=== PATIENT | female | born 1985 | race Caucasian/White ===

== ENCOUNTER 2017-10-08 22:28 | Inpatient (IN) | payer OTHER ==
[~2017-10-08] VITALS: Ht 172.7 cm; Wt 90.7 kg
[2017-10-08] MEDS ORDERED: TERBUTALINE SULFATE 1 MG/ML VIAL SUBCUT ONE (22:45)
[2017-10-08] MEDS ORDERED: LR 500 ML IV ONE (22:45)
[2017-10-08] MEDS ORDERED: NALBUPHINE HCL 10 MG/ML AMP IVP PRN (22:45)
[2017-10-08] MEDS ORDERED: OXYTOCIN/NORMAL SALINE 1,000 ML IV SCH (22:45)
[2017-10-08] MEDS ORDERED: AMPICILLIN SODIUM 2 GM in NS 100 ML IV ONE (22:45)
[2017-10-08] MEDS ORDERED: LR 1,000 ML IV ONE (22:45)
[2017-10-08 23:24] LABS: BASOPHILS % (AUTO) 0.3 % (0.0-2.0); EOSINOPHILS # (AUTO) 0.3 K/uL (0.0-0.4); EOSINOPHILS % (AUTO) 2.9 % (0.0-4.0); HEMATOCRIT 33.3 % (36-48); LYMPHOCYTES % (AUTO) 20.4 % (20.5-51.5); MEAN CORPUSCULAR HEMOGLOBIN 27 pg (27-31); MEAN CORPUSCULAR HGB CONC 33 % (32-36); MEAN CORPUSCULAR VOLUME 82 fL (79.0-98.0); MONOCYTES # (AUTO) 0.7 K/uL (0.0-1.0); MONOCYTES % (AUTO) 6.7 % (1.7-9.3); NEUTROPHILS # (AUTO) 6.7 K/uL (1.8-7.7); NEUTROPHILS % (AUTO) 69.7 % (40.0-70.0); PLATELET COUNT (AUTO) 391 K/uL (130-430); RED BLOOD CELL COUNT(AUTO) 4.07 MIL/uL (4.2-6.2); RED CELL DISTRIBUTION WIDTH 13.6 % (9.0-15.0); WHITE BLOOD COUNT (AUTO) 9.7 K/uL (4.8-10.8)
[2017-10-08] MEDS: LR 1,000 ML IV SCH (23:54)
[2017-10-09] MEDS ORDERED: fentaNYL CITRATE/PF 100 MCG/2 ML AMP ONE (00:37)
[2017-10-09] MEDS: LR 1,000 ML IV SCH (01:04)
[2017-10-09 01:45] VITALS: BP_SYST 117
[2017-10-09] MEDS ORDERED: LR 500 ML IV ONE (02:18)
[2017-10-09] MEDS ORDERED: FENT2mCg/mL-ROPIVA0.2%/NS EPID 150 ML EP SCH (02:30)
[2017-10-09] MEDS ORDERED: fentaNYL CITRATE/PF 100 MCG/2 ML AMP IVP ONE ×2 (02:30)
[2017-10-09] MEDS ORDERED: ePHEDrine sulfate 50 MG/ML VIAL IVP PRN (02:30)
[2017-10-09] MEDS ORDERED: SENNOSIDES/DOCUSATE SODIUM 1 TAB TABLET(SENOKOT-S) PO PRN (07:00)
[2017-10-09] MEDS ORDERED: GLYCERIN/WITCH HAZEL (TUCKS PADS) TP PRN (07:00)
[2017-10-09] MEDS ORDERED: DOCUSATE SODIUM 100 MG CAPSULE PO PRN (07:00)
[2017-10-09] MEDS ORDERED: LANOLIN 7 GM OINT. TP PRN (07:00)
[2017-10-09] MEDS ORDERED: ACETAMINOPHEN 325 MG TABLET PO PRN (07:00)
[2017-10-09] MEDS ORDERED: OXYTOCIN/NORMAL SALINE 1,000 ML IV SCH (07:00)
[2017-10-09] MEDS ORDERED: OXYCODONE/ACETAMINOPHEN 5-325 TABLET PO PRN ×2 (07:00)
[2017-10-09] MEDS ORDERED: METHYLERGONOVINE MALEATE 0.2 MG TABLET PO PRN (07:00)
[2017-10-09] MEDS ORDERED: DERMOPLAST SPRAY TP PRN (07:00)
[2017-10-09] MEDS ORDERED: OXYTOCIN/NORMAL SALINE 1,000 ML IV ONE (07:00)
[2017-10-09] MEDS ORDERED: DIPH-TET-PERTUS Vaccine 0.5 ML VIAL (ADACEL) I.M. PRN (07:00)
[2017-10-09] MEDS ORDERED: RHO(D) IMMUNE GLOBULIN/MALTOSE 1500 UNITS/1.3 ML (WINHRO) IM PRN (07:00)
[2017-10-09] MEDS ORDERED: HYDROCORTISONE 0.5%, 28.35 GM TOPICAL CREAM TP PRN (07:00)
[2017-10-09] MEDS ORDERED: ANUSOL 1 EA SUPP.RECT (PREPARATION H) RC PRN (07:00)
[2017-10-09] MEDS ORDERED: MEASLES,MUMPS&RUBELLA VACC/PF 12500 UNIT/0.5 ML VIAL SUBQ PRN (07:00)
[2017-10-09] MEDS ORDERED: DIPHENHYDRAMINE HCL 50 MG CAPSULE PO PRN (08:45)
[2017-10-09] MEDS: IBUPROFEN 600 MG TABLET PO SCH ×2 (12:04→17:37)
[2017-10-09] MEDS ORDERED: TEMAZEPAM 15 MG CAPSULE PO PRN (21:00)
[2017-10-10] MEDS: IBUPROFEN 600 MG TABLET PO SCH ×3 (00:12→11:51)
[2017-10-10 07:35] LABS: HEMATOCRIT 32.1 % (36-48); HEMOGLOBIN 10.3 g/dL (12.0-16.0)
[2017-10-10] MEDS ORDERED: MINERAL OIL 30 ML UDC PO ONE (13:04)
== END 2017-10-10 13:05 | disposition home or self-care (01) | DRG 775 ==
LOC: SPU 22:28
PROVIDERS: ADMIT Obstetrics & Gynecology; ATTEND Obstetrics & Gynecology
PROC: 10E0XZZ Delivery of Products of Conception, External Approach (ICD-10-PCS; principal; 2017-10-09)
PROC: 0KQM0ZZ Repair Perineum Muscle, Open Approach (ICD-10-PCS; 2017-10-09)
PROC: 00HU33Z Insertion of Infusion Device into Spinal Canal, Percutaneous Approach (ICD-10-PCS; 2017-10-09)
PROC: 3E0R3BZ Introduction of Anesthetic Agent into Spinal Canal, Percutaneous Approach (ICD-10-PCS; 2017-10-09)
DX: O70.1 Second degree perineal laceration during delivery (principal); Z37.0 Single live birth; Z3A.38 38 weeks gestation of pregnancy
CPT/HCPCS: 36415; 85018-TC; 85025; 86592; 86886; 86900; 86901; J0290; J2300; J2590; J3010; J7120; Q0163

== ENCOUNTER 2022-09-26 18:55 | Inpatient (IN) | payer BC, OTHER ==
[~2022-09-26] VITALS: Ht 170.2 cm; Wt 99.8 kg
[~2022-09-26 18:55] MED LIST: LR 1,000 ML IV.SOLN IV ONE; MIDAZOLAM HCL 50 mg/10 mL INJ. VIAL ONE; NS IRRIG SOLN 1000 ML IR ONE; ceFAZolin SODIUM 1 GM VIAL ONE; fentaNYL CITRATE 250 MCG/5 ML AMP ONE
[2022-09-26] MEDS ORDERED: OXYTOCIN/0.9 % SODIUM CHLORIDE 1,000 ML IV SCH (20:15)
[2022-09-26] MEDS ORDERED: LR 1,000 ML IV ONE (20:15)
[2022-09-26] MEDS ORDERED: NALBUPHINE HCL 10 MG/ML AMP IM PRN (20:15)
[2022-09-26] MEDS ORDERED: TERBUTALINE SULFATE 1 MG/ML VIAL SUBCUT ONE (20:15)
[2022-09-26] MEDS ORDERED: LR 1,000 ML IV SCH (20:15)
[2022-09-26] MEDS ORDERED: LR 500 ML IV ONE ×2 (20:15→20:30)
[2022-09-26] MEDS ORDERED: ROPIVACAINE HCL/PF 0.2% 200 ML ONE (20:19)
[2022-09-26] MEDS ORDERED: fentaNYL CITRATE/PF 100 MCG/2 ML AMP ONE (20:19)
[2022-09-26] MEDS ORDERED: FENT2mCg/mL-ROPIVA0.2%/NS EPID 200 ML EP SCH (20:30)
[2022-09-26] MEDS ORDERED: AMPICILLIN SODIUM 2 GM in NS 100 ML IV ONE (20:45)
[2022-09-26 20:46] LABS: BASOPHILS % (AUTO) 0.3 % (0.0-2.0); EOSINOPHILS # (AUTO) 0.2 K/uL (0.0-0.4); EOSINOPHILS % (AUTO) 2.1 % (0.0-4.0); HEMATOCRIT 33.9 % (36-48); HEMOGLOBIN 11.1 g/dL (12.0-16.0); LYMPHOCYTES # (AUTO) 1.9 K/uL (1.0-5.5); LYMPHOCYTES % (AUTO) 24.2 % (20.5-51.5); MEAN CORPUSCULAR HEMOGLOBIN 26 pg (27-31); MEAN CORPUSCULAR HGB CONC 33 % (32-36); MEAN CORPUSCULAR VOLUME 80 fL (79.0-98.0); MONOCYTES # (AUTO) 0.6 K/uL (0.0-1.0); MONOCYTES % (AUTO) 7.9 % (1.7-9.3); NEUTROPHILS # (AUTO) 5.3 K/uL (1.8-7.7); NEUTROPHILS % (AUTO) 65.5 % (40.0-70.0); PLATELET COUNT (AUTO) 366 K/uL (130-430); RED BLOOD CELL COUNT(AUTO) 4.23 MIL/uL (4.2-6.2); RED CELL DISTRIBUTION WIDTH 15.7 % (9.0-15.0)
[2022-09-26 23:31] VITALS: BP_SYST 125
[2022-09-27] MEDS ORDERED: AMPICILLIN SODIUM 2 GM VIAL ONE ×2 (00:10)
[2022-09-27] MEDS ORDERED: AMPICILLIN SODIUM 1 GM in NS 50 ML IV SCH (02:00)
[2022-09-27] MEDS ORDERED: AMPICILLIN SODIUM 1 GM VIAL ONE ×2 (04:02)
[2022-09-27] MEDS ORDERED: fentaNYL CITRATE/PF 100 MCG/2 ML AMP ONE (11:57)
[2022-09-27] MEDS ORDERED: ROPIVACAINE HCL/PF 0.2% 200 ML ONE (11:58)
[2022-09-27] MEDS ORDERED: DIPHENHYDRAMINE INJ 50 MG/ML VIAL IVP PRN (17:15)
[2022-09-27] MEDS ORDERED: METOCLOPRAMIDE HCL 10 MG/2 ML VIAL IVP PRN (17:15)
[2022-09-27] MEDS ORDERED: ONDANSETRON HCL 4 MG/2 ML VIAL IVP PRN ×2 (17:15)
[2022-09-27] MEDS ORDERED: MORPHINE SULFATE 10MG/10ML PF AMP EP SCH (17:15)
[2022-09-27] MEDS ORDERED: NALOXONE HCL 0.4 MG/ML AMP (NARCAN) IVP PRN ×3 (17:15→18:00)
[2022-09-27] MEDS ORDERED: fentaNYL CITRATE/PF 100 MCG/2 ML AMP IVP PRN ×2 (17:15)
[2022-09-27] MEDS ORDERED: KETOROLAC TROMETHAMINE 60 MG/2 ML VIAL IM PRN (17:15)
[2022-09-27] MEDS ORDERED: NALBUPHINE HCL 10 MG/ML AMP IVP PRN (17:15)
[2022-09-27] MEDS ORDERED: HYDROcodone/ACETAMIN 5-325 MG TAB (NORCO/ VICODIN) PO PRN (18:00)
[2022-09-27] MEDS ORDERED: LANOLIN 7 GM OINT. TP PRN (18:00)
[2022-09-27] MEDS ORDERED: TEMAZEPAM 15 MG CAPSULE PO PRN (18:00)
[2022-09-27] MEDS ORDERED: ANUSOL 1 EA SUPP.RECT (PREPARATION H) RC PRN (18:00)
[2022-09-27] MEDS ORDERED: RHO(D) IMMUNE GLOBULIN/MALTOSE 1500 UNITS/1.3 ML (WINHRO) IM PRN (18:00)
[2022-09-27] MEDS ORDERED: LR 1,000 ML IV SCH (18:00)
[2022-09-27] MEDS ORDERED: HYDROmorphone 2 MG/ML VIAL IVP PRN (18:00)
[2022-09-27] MEDS ORDERED: DIPHTH,PERTUSS(ACELL),TET VAC 0.5 ML VIAL (Tdap) I.M. PRN (18:00)
[2022-09-27] MEDS ORDERED: MEASLES,MUMPS&RUBELLA VACC/PF 12500 UNIT/0.5 ML VIAL SUBQ PRN (18:00)
[2022-09-27] MEDS ORDERED: BISACODYL 10 MG/SUPPOSITORY RC PRN (18:00)
[2022-09-27] MEDS ORDERED: OXYTOCIN 10 UNIT/ML VIAL ONE (18:12)
[2022-09-27 19:13] VITALS: BP_SYST 124
[2022-09-27] MEDS: SENNOSIDES/DOCUSATE SODIUM 1 TAB TABLET(SENOKOT-S) PO SCH (21:16)
[2022-09-27 21:26] LABS: BASOPHILS % (AUTO) 0.1 % (0.0-2.0); EOSINOPHILS % (AUTO) 0.1 % (0.0-4.0); HEMATOCRIT 26.1 % (36-48); LYMPHOCYTES # (AUTO) 1.3 K/uL (1.0-5.5); LYMPHOCYTES % (AUTO) 8.6 % (20.5-51.5); MEAN CORPUSCULAR HEMOGLOBIN 26 pg (27-31); MEAN CORPUSCULAR HGB CONC 33 % (32-36); MEAN CORPUSCULAR VOLUME 81 fL (79.0-98.0); MONOCYTES # (AUTO) 0.8 K/uL (0.0-1.0); MONOCYTES % (AUTO) 5.4 % (1.7-9.3); NEUTROPHILS # (AUTO) 12.7 K/uL (1.8-7.7); NEUTROPHILS % (AUTO) 85.8 % (40.0-70.0); PLATELET COUNT (AUTO) 347 K/uL (130-430); RED BLOOD CELL COUNT(AUTO) 3.23 MIL/uL (4.2-6.2); RED CELL DISTRIBUTION WIDTH 15.2 % (9.0-15.0); WHITE BLOOD COUNT (AUTO) 14.8 K/uL (4.8-10.8)
[2022-09-27 21:27] LABS: HEMOGLOBIN 8.5 g/dL (12.0-16.0)
[2022-09-27] MEDS: CEFAZOLIN 1 GM IVPB PREMIX 50 ML IV SCH (23:51)
[2022-09-28] MEDS: OXYTOCIN/0.9 % SODIUM CHLORIDE 1,000 ML IV SCH ×2 (02:09→13:26)
[2022-09-28] MEDS: CEFAZOLIN 1 GM IVPB PREMIX 50 ML IV SCH ×2 (06:13→11:49)
[2022-09-28 07:57] LABS: BASOPHILS % (AUTO) 0.3 % (0.0-2.0); EOSINOPHILS % (AUTO) 0.5 % (0.0-4.0); HEMOGLOBIN 7.2 g/dL (12.0-16.0); LYMPHOCYTES # (AUTO) 1.5 K/uL (1.0-5.5); LYMPHOCYTES % (AUTO) 16.6 % (20.5-51.5); MEAN CORPUSCULAR HEMOGLOBIN 27 pg (27-31); MEAN CORPUSCULAR HGB CONC 34 % (32-36); MEAN CORPUSCULAR VOLUME 81 fL (79.0-98.0); MONOCYTES # (AUTO) 0.7 K/uL (0.0-1.0); MONOCYTES % (AUTO) 8.2 % (1.7-9.3); NEUTROPHILS # (AUTO) 6.7 K/uL (1.8-7.7); NEUTROPHILS % (AUTO) 74.4 % (40.0-70.0); PLATELET COUNT (AUTO) 308 K/uL (130-430); RED BLOOD CELL COUNT(AUTO) 2.66 MIL/uL (4.2-6.2); RED CELL DISTRIBUTION WIDTH 15.4 % (9.0-15.0); WHITE BLOOD COUNT (AUTO) 9.1 K/uL (4.8-10.8)
[2022-09-28 08:59] LABS: HEMATOCRIT 21.4 % (36-48)
[2022-09-28] MEDS: DOCUSATE SODIUM 100 MG CAPSULE PO SCH ×2 (09:08→21:14)
[2022-09-28] MEDS: OXYCODONE/ACETAMINOPHEN 5-325 TABLET PO PRN ×2 (11:47→15:27)
[2022-09-28] MEDS ORDERED: IRON DEXTRAN COMPLEX 25 MG in NS 50 ML IV ONE (15:00)
[2022-09-28] MEDS ORDERED: EPOETIN ALFA-EPBX 20,000 UNITS/ML VIAL SUBCUT ONE (15:00)
[2022-09-28] MEDS ORDERED: IRON DEXTRAN COMPLEX 75 MG in NS 100 ML IV ONE (16:30)
[2022-09-28] MEDS: OXYCODONE/ACETAMINOPHEN *10*mg/325 mg TABLET PO PRN ×2 (18:27→22:02)
[2022-09-28] MEDS: SIMETHICONE 80 MG TAB.CHEW PO PRN ×2 (18:28→21:15)
[2022-09-29] MEDS: OXYCODONE/ACETAMINOPHEN *10*mg/325 mg TABLET PO PRN ×5 (01:07→18:21)
[2022-09-29 09:23] LABS: BASOPHILS % (AUTO) 0.1 % (0.0-2.0); EOSINOPHILS % (AUTO) 0.4 % (0.0-4.0); HEMATOCRIT 22.5 % (36-48); HEMOGLOBIN 7.5 g/dL (12.0-16.0); LYMPHOCYTES # (AUTO) 1.6 K/uL (1.0-5.5); LYMPHOCYTES % (AUTO) 14.4 % (20.5-51.5); MEAN CORPUSCULAR HEMOGLOBIN 27 pg (27-31); MEAN CORPUSCULAR HGB CONC 33 % (32-36); MEAN CORPUSCULAR VOLUME 82 fL (79.0-98.0); MONOCYTES # (AUTO) 0.6 K/uL (0.0-1.0); MONOCYTES % (AUTO) 5.7 % (1.7-9.3); NEUTROPHILS # (AUTO) 8.7 K/uL (1.8-7.7); NEUTROPHILS % (AUTO) 79.4 % (40.0-70.0); PLATELET COUNT (AUTO) 336 K/uL (130-430); RED BLOOD CELL COUNT(AUTO) 2.74 MIL/uL (4.2-6.2); RED CELL DISTRIBUTION WIDTH 15.8 % (9.0-15.0)
[2022-09-29] MEDS: SIMETHICONE 80 MG TAB.CHEW PO PRN ×3 (09:24→21:44)
[2022-09-29] MEDS: DOCUSATE SODIUM 100 MG CAPSULE PO SCH ×2 (09:24→20:23)
[2022-09-29] MEDS ORDERED: EPOETIN ALFA-EPBX 10,000 UNITS/ML VIAL SUBCUT ONE (10:30)
[2022-09-29] MEDS ORDERED: IRON DEXTRAN COMPLEX 100 MG in NS 100 ML IV SCH (16:30)
[2022-09-29] MEDS: SENNOSIDES/DOCUSATE SODIUM 1 TAB TABLET(SENOKOT-S) PO SCH (20:22)
[2022-09-29] MEDS: IBUPROFEN 600 MG TABLET PO SCH (21:44)
[2022-09-30] MEDS: OXYCODONE/ACETAMINOPHEN 5-325 TABLET PO PRN ×2 (00:04→06:13)
[2022-09-30] MEDS: IBUPROFEN 600 MG TABLET PO SCH ×4 (03:25→20:52)
[2022-09-30] MEDS: DOCUSATE SODIUM 100 MG CAPSULE PO SCH ×2 (09:00→20:53)
[2022-09-30] MEDS ORDERED: EPOETIN ALFA-EPBX 10,000 UNITS/ML VIAL SUBCUT ONE (12:00)
[2022-09-30] MEDS ORDERED: IRON DEXTRAN COMPLEX 100 MG in NS 100 ML IV ONE (12:00)
[2022-09-30 13:31] LABS: BASOPHILS % (AUTO) 0.1 % (0.0-2.0); EOSINOPHILS # (AUTO) 0.3 K/uL (0.0-0.4); EOSINOPHILS % (AUTO) 2.7 % (0.0-4.0); LYMPHOCYTES # (AUTO) 1.8 K/uL (1.0-5.5); LYMPHOCYTES % (AUTO) 19.2 % (20.5-51.5); MEAN CORPUSCULAR HEMOGLOBIN 27 pg (27-31); MEAN CORPUSCULAR HGB CONC 33 % (32-36); MEAN CORPUSCULAR VOLUME 82 fL (79.0-98.0); MONOCYTES # (AUTO) 0.6 K/uL (0.0-1.0); MONOCYTES % (AUTO) 6.1 % (1.7-9.3); NEUTROPHILS # (AUTO) 6.9 K/uL (1.8-7.7); NEUTROPHILS % (AUTO) 71.9 % (40.0-70.0); PLATELET COUNT (AUTO) 377 K/uL (130-430); RED BLOOD CELL COUNT(AUTO) 2.48 MIL/uL (4.2-6.2); RED CELL DISTRIBUTION WIDTH 15.9 % (9.0-15.0); WHITE BLOOD COUNT (AUTO) 9.6 K/uL (4.8-10.8)
[2022-09-30 13:45] LABS: HEMATOCRIT 20.2 % (36-48); HEMOGLOBIN 6.7 g/dL (12.0-16.0)
[2022-09-30] MEDS: SIMETHICONE 80 MG TAB.CHEW PO PRN (18:11)
[2022-09-30] MEDS: OXYCODONE/ACETAMINOPHEN *10*mg/325 mg TABLET PO PRN (18:11)
[2022-09-30 19:28] LABS: BASOPHILS % (AUTO) 0.3 % (0.0-2.0); EOSINOPHILS # (AUTO) 0.4 K/uL (0.0-0.4); EOSINOPHILS % (AUTO) 3.5 % (0.0-4.0); LYMPHOCYTES # (AUTO) 2.5 K/uL (1.0-5.5); LYMPHOCYTES % (AUTO) 24.6 % (20.5-51.5); MEAN CORPUSCULAR HEMOGLOBIN 27 pg (27-31); MEAN CORPUSCULAR HGB CONC 33 % (32-36); MEAN CORPUSCULAR VOLUME 82 fL (79.0-98.0); MONOCYTES # (AUTO) 0.7 K/uL (0.0-1.0); MONOCYTES % (AUTO) 7.2 % (1.7-9.3); NEUTROPHILS # (AUTO) 6.4 K/uL (1.8-7.7); NEUTROPHILS % (AUTO) 64.4 % (40.0-70.0); PLATELET COUNT (AUTO) 387 K/uL (130-430); RED BLOOD CELL COUNT(AUTO) 2.59 MIL/uL (4.2-6.2); RED CELL DISTRIBUTION WIDTH 15.9 % (9.0-15.0)
[2022-09-30 19:38] LABS: HEMATOCRIT 21.3 % (36-48)
[2022-09-30] MEDS: SENNOSIDES/DOCUSATE SODIUM 1 TAB TABLET(SENOKOT-S) PO SCH (20:53)
[2022-10-01] MEDS ORDERED: IRON DEXTRAN COMPLEX 100 MG in NS 100 ML IV SCH (09:00)
== END 2022-09-30 21:18 | disposition home or self-care (01) | DRG 788 ==
LOC: SPU 18:55
PROVIDERS: ADMIT Specialist; ATTEND Specialist
PROC: 10D00Z1 Extraction of Products of Conception, Low, Open Approach (ICD-10-PCS; principal; 2022-09-27 16:45)
DX: O62.1 Secondary uterine inertia (principal); O42.92 Full-term premature rupture of membranes, unspecified as to length of time between rupture and onset of labor; Z20.822 Contact with and (suspected) exposure to COVID-19; O90.81 Anemia of the puerperium; D50.0 Iron deficiency anemia secondary to blood loss (chronic); Z37.0 Single live birth; Z3A.38 38 weeks gestation of pregnancy
CPT/HCPCS: 36415; 81002; 85025; 86886; 86900; 86901; 94760; J0290; J0690; J1750; J1885; J2590; J3010; J7120; Q5106